=== PATIENT | female | born 1975 | race Two or more races ===

== ENCOUNTER 2016-09-08 13:49 | Inpatient (IN) | payer SELFPAY ==
[~2016-09-08] VITALS: Ht 165.1 cm; Wt 65.8 kg
[2016-09-08] VITALS (12 sets, daily range): BP systolic 98–129; BP diastolic 33–78
[2016-09-08] MEDS ORDERED: SODIUM CHLORIDE 0.9% 1,000 ML IVB ONE (14:07)
[2016-09-08 15:08] LABS: Basophils # (auto) 0.2 uL; Basophils % (auto) 1.5 % (0.0-2.0); DEFINITIVE VIEW TRANSMISSION; Eosinophils # (auto) 0 uL; Eosinophils % (auto) 0.5 % (0.0-7.0); Hematocrit 21.5 % (36.0-46.0); Lymphocytes # (auto) 2.1 uL; Lymphocytes % (auto) 21.2 % (10.0-50.0); Mean Corpuscular Hemoglobin 15.1 pg (28.0-32.0); Mean Corpuscular Hgb Conc. 28.4 g/dL (32.0-36.0); Mean Corpuscular Volume 53.2 fL (80.0-100.0); Mean Platelet Volume 10.3 fL (7.4-10.4); Monocytes # (auto) 0.4 uL; Monocytes % (auto) 4.5 % (0.0-12.0); Neutrophils # (auto) 7.1 uL; Neutrophils % (auto) 72.3 % (37.0-80.0); Platelet Count (auto) 197 10^3/uL (140-450); SUSPECT VIEW TRANSMISSION; White Blood Cell 9.8 10^3/uL (4.4-10.8)
[2016-09-08 15:23] LABS: Hemoglobin 6.1 g/dL (12.2-16.2); Red Cell Distribution Width 20.9 % (11.6-16.0)
[2016-09-08 15:45] LABS: Albumin 3.8 g/dL (3.4-5.0); BUN/Creatinine Ratio 23.2; Bilirubin, Total 0.8 mg/dL (0.2-1.0); Calcium 8.7 mg/dL (8.5-10.1); Magnesium 2.4 mg/dL (1.6-2.6); Potassium 3.6 mmol/L (3.5-5.1); Total Protein 7.3 g/dL (6.4-8.2)
[2016-09-08] MEDS ORDERED: MORPHINE SULF INJ 2 MG/ML SYRINGE 1ML IV PRN ×2 (16:00)
[2016-09-08] MEDS ORDERED: ONDANSETRON HCL 4 MG/2 ML VIAL IV PRN (16:00)
[2016-09-08] MEDS ORDERED: DOCUSATE SOD 100 MG CAP PO PRN (16:00)
[2016-09-08] MEDS ORDERED: HYDROcodone-ACET 5/325MG TAB PO PRN (16:00)
[2016-09-08] MEDS ORDERED: ACETAMINOPHEN 325 MG TAB PO PRN (16:00)
[2016-09-08] MEDS ORDERED: NITROGLYCERIN 0.4 MG SL TAB SL PRN (16:00)
[2016-09-08] MEDS ORDERED: TEMAZEPAM 15 MG CAP PO PRN (16:00)
[2016-09-08] MEDS ORDERED: MULTIPLE VITAMIN TAB PO ONE (16:15)
[2016-09-08 16:21] LABS: Urine Bilirubin Negative (Negative); Urine Blood Negative /uL (Negative); Urine Color Yellow (Yellow); Urine Glucose Normal (Normal); Urine Ketone Negative (Negative); Urine RBC <1 /hpf (0 - 4); Urine Squamous Epithelial Cell FEW /hpf (<5); Urine Urobilinogen Normal (Negative)
[2016-09-08] MEDS: SODIUM CHLORIDE 0.9% 1,000 ML IV SCH (16:21)
[2016-09-08 16:22] LABS: Urine Nitrite POSITIVE (Negative)
[2016-09-08 16:30] LABS: INR 0.96 (0.9-1.15); Prothrombin Time 10.5 sec (9.37-12.3)
[2016-09-08 16:45] LABS: Hypochromia Marked; Platelet Estimate Adequate
[2016-09-08 16:46] LABS: Giant Platelets Few; Large Platelets MODERATE; Microcytosis Marked; Tear Drop Cells FEW
[2016-09-08 16:47] LABS: Stomatocytes Few
[2016-09-09 00:54] VITALS: BP 109/70
[2016-09-09 05:00] VITALS: BP 112/77
[2016-09-09] MEDS: SODIUM CHLORIDE 0.9% 1,000 ML IV SCH (05:14)
[2016-09-09 06:02] LABS: Albumin 3.4 g/dL (3.4-5.0); BUN/Creatinine Ratio 20.6; Calcium 8.1 mg/dL (8.5-10.1); Potassium 3.7 mmol/L (3.5-5.1)
[2016-09-09 06:04] LABS: Bilirubin, Total 1.7 mg/dL (0.2-1.0)
[2016-09-09 06:05] LABS: Basophils # (auto) 0.1 uL; Basophils % (auto) 1.1 % (0.0-2.0); DEFINITIVE VIEW TRANSMISSION; Eosinophils # (auto) 0.1 uL; Eosinophils % (auto) 1.1 % (0.0-7.0); Hematocrit 27.8 % (36.0-46.0); Hemoglobin 8.3 g/dL (12.2-16.2); Lymphocytes # (auto) 3.3 uL; Lymphocytes % (auto) 33.9 % (10.0-50.0); Mean Corpuscular Hemoglobin 18.7 pg (28.0-32.0); Mean Corpuscular Volume 62.2 fL (80.0-100.0); Mean Platelet Volume 10.9 fL (7.4-10.4); Monocytes # (auto) 0.6 uL; Monocytes % (auto) 6.4 % (0.0-12.0); Neutrophils # (auto) 5.5 uL; Neutrophils % (auto) 57.5 % (37.0-80.0); SUSPECT VIEW TRANSMISSION; White Blood Cell 9.6 10^3/uL (4.4-10.8)
[2016-09-09 06:09] LABS: Platelet Count (auto) 165 10^3/uL (140-450); Red Cell Distribution Width 31.7 % (11.6-16.0)
[2016-09-09 06:35] LABS: Anisocytosis Marked; Hypochromia Marked; Microcytosis Marked; Ovalocytes FEW; Platelet Estimate Adequate; Polychromasia Slight
[2016-09-09 06:36] LABS: Large Platelets FEW
[2016-09-09 09:00] VITALS: BP 109/52
[2016-09-09] MEDS ORDERED: FER325T PO (09:34)
[2016-09-09] MEDS ORDERED: MULTIPLE VITAMIN TAB PO SCH (10:00)
[2016-09-09 10:22] VITALS: BP 109/52
== END 2016-09-09 12:59 | disposition home or self-care (01) | DRG 812 ==
LOC: ER 14:00 → TELE 14:01 → TELE-EAST 16:56
PROVIDERS: ADMIT Internal Medicine; ATTEND Internal Medicine
PROC: 30233N1 Transfusion of Nonautologous Red Blood Cells into Peripheral Vein, Percutaneous Approach (ICD-10-PCS; principal; 2016-09-08)
DX: D64.9 Anemia, unspecified (principal); R55 Syncope and collapse; N93.8 Other specified abnormal uterine and vaginal bleeding; R00.0 Tachycardia, unspecified; E61.1 Iron deficiency; N92.0 Excessive and frequent menstruation with regular cycle; Z98.51 Tubal ligation status; Z82.49 Family history of ischemic heart disease and other diseases of the circulatory system
CPT/HCPCS: 36415; 36430; 71010; 80053; 81001; 83540; 83735; 85025; 85610; 86850; 86900; 86901; 86920; 96365; 99291